=== PATIENT | male | born 1970 | race Asian ===

== ENCOUNTER 2018-06-06 17:45 | Emergency (ER) | payer OTHER ==
[2018-06-06 17:59] VITALS: BP 140/84
--- NOTE | 2018-06-06 18:44 | UC ---
Respiratory Complaint HPI - HPI Summary HPI Summary: This is Nena hernandez, documenting for attending, Edvin Genao MD. This patient is a 47 year old M presenting to [facility] with a chief complaint of worsening mild green/yellow productive cough and itchy throat for the past two days. Reports chest pain with cough, rated 7/10 in severity. Denies fever and chills. No relief from Mucinex. Believes he may have a cold after taking a long bus ride. He states he gets infections easily. States he regularly gets infusions to improve immunity. - History of Current Complaint Chief Complaint: UCRespiratory Stated Complaint: COUGH Time Seen by Provider: 06/06/18 18:28 Hx Obtained From: Patient Onset/Duration: Lasting Days Timing: Constant Pain Intensity: 7 Pain Scale Used: 0-10 Numeric Character: Cough: Productive Associated Signs And Symptoms: Positive: Calf Pain - with cough - Allergies/Home Medications Allergies/Adverse Reactions: Allergies Allergy/AdvReac Type Severity Reaction Status Date / Time No Known Allergies Allergy Verified 04/18/15 08:56 Home Medications: Home Medications Immune Globuln 10%-20GM(PRIVI) [Privigen 10% - 20GM*] 20 gm IV MONTHLY 06/06/18 [History Confirmed 06/06/18] PMH/Surg Hx/FS Hx/Imm Hx Previously Healthy: Yes - report poor immunity - Surgical History Surgical History: None - Family History Known Family History: Negative: Diabetes - Social History Alcohol Use: None Substance Use Type: None Smoking Status (MU): Never Smoked Tobacco Review of Systems Constitutional: Negative ENT: Sore Throat Respiratory: Cough Cardiovascular: Chest Pain - with cough All Other Systems Reviewed And Are Negative: Yes Physical Exam - Summary Physical Exam Summary: Appearance: Well-appearing, Well-nourished Skin: Warm Eyes: Normal ENT: Normal Neck: Supple, nontender Respiratory: Mild coarse breath sounds; no decreased breath sounds or crackles Cardiovascular: Regular rate, regular rhythm. Normal S1, S2. Abdomen: Soft, nontender Musculoskeletal: Normal, Strength/ROM Intact Neurological: Normal, A&Ox3 Psychiatric: Normal General: No acute distress Triage Information Reviewed: Yes Vital Signs: Initial Vital Signs Temp 98.6 F 06/06/18 17:52 Pulse 81 06/06/18 17:52 Resp 16 06/06/18 17:52 BP 140/84 06/06/18 17:52 Pulse Ox 97 06/06/18 17:52 Vital Signs Reviewed: Yes UC Diagnostic Evaluation - Laboratory O2 Sat by Pulse Oximetry: 97 Respiratory Course/Dx - Course Course Of Treatment: Per pt, AZUL rather travels QUICKLY to his chest as he c/o pleuritic CP only 2 days after URI sx with sputum. WIll empirically tx for bacterial bronchitis - Differential Dx/Diagnosis Provider Diagnoses: acute bronchitis, Pharyngitis Discharge - Sign-Out/Discharge Documenting (check all that apply): Patient Departure - Discharge Plan Condition: Stable Disposition: HOME Prescriptions: Azithromyxin CHICO (NF) [Z-[place] (Zithromax) 250 mg tabs #6] 2 tab PO .TODAY, THEN 1 DAILY #6 tab Patient Education Materials: Acute Bronchitis (ED) Referrals: Ruddy Alves MD [Primary Care Provider] - - Billing Disposition and Condition Condition: STABLE Disposition: Home
== END 2018-06-06 19:40 | disposition home or self-care (01) ==
LOC: UCEAST 17:45
DX: J20.9 Acute bronchitis, unspecified (principal); J02.9 Acute pharyngitis, unspecified
CPT/HCPCS: 87651; 99212; G0463